=== PATIENT | female | born 1940 | race Caucasian/White ===

== ENCOUNTER 2024-06-19 13:50 | Inpatient (IN) | payer BC, OTHER ==
[~2024-06-19] VITALS: Ht 154.9 cm; Wt 52.2 kg
[2024-06-19] MEDS: CEFEPIME 1 GM in IV D5W 50 ML IV ONE (14:00)
[2024-06-19] MEDS: IV NS 0.9% 1,000 ML BAG IV ONE ×2 (14:00→17:42)
[2024-06-19 14:13] LABS: BASOPHILS % (AUTO) 0.1 % (0.0-2.0); HEMATOCRIT 32 % (33-45); HEMOGLOBIN 10.5 g/dL (11.5-14.8); LYMPHOCYTES % (AUTO) 5.4 % (20.0-44.0); MEAN CORPUSCULAR HEMOGLOBIN 29 PG (26.0-33.0); MEAN CORPUSCULAR HGB CONC 33 g/dl (31.0-36.0); MEAN CORPUSCULAR VOLUME 88 fL (82-100); MONOCYTES # (AUTO) 0.7 K/uL (0.1-1.30); MONOCYTES % (AUTO) 3.7 % (2.0-12.0); NEUTROPHILS # (AUTO) 16.7 K/uL (1.8-8.9); NEUTROPHILS % (AUTO) 90.8 % (43.0-81.0); PLATELET COUNT (AUTO) 180 K/uL (150-450); RED BLOOD CELL COUNT(AUTO) 3.65 MIL/uL (4.0-5.2); RED CELL DISTRIBUTION WIDTH 15.8 % (11.5-15.0); WHITE BLOOD COUNT (AUTO) 18.4 K/uL (4.3-11.0)
[2024-06-19 14:27] LABS: LACTIC ACID 1.5 mmol/L (0.4-2.0)
[2024-06-19 14:34] LABS: ALANINE AMINOTRANSFERASE 40 U/L (12-78); ALKALINE PHOSPHATASE 108 U/L (46-116); ASPARTATE AMINOTRANSFERASE 42 U/L (15-37); BILIRUBIN,DIRECT 0.2 mg/dL (0.0-0.2); BILIRUBIN,TOTAL 0.7 mg/dL (0.2-1.0); CALCIUM, SERUM 10.8 mg/dL (8.5-10.1); CARBON DIOXIDE 27 mmol/L (21-32); CHLORIDE 101 mmol/L (98-107); CREATININE 1.4 mg/dL (0.6-1.3); GLUCOSE 135 mg/dL (74-106); POTASSIUM 3.6 mmol/L (3.5-5.1); SODIUM SERUM 137 mmol/L (136-145); TOTAL PROTEIN, SERUM 6.3 g/dL (6.4-8.2); UREA NITROGEN, BLOOD 53 mg/dL (7-18)
[2024-06-19 14:55] LABS: ABG BASE EXCESS 1.7 mmol/L (-2.0-3.0); ABG OXYGEN SATURATION 93.9 % (94.0-98.0); ABG PCO2 60.3 mmHg (32.0-45.0); ABG PH 7.301 (7.350-7.450); ABG PO2 76.5 mmHg (83.0-108.0); ABG TOTAL HEMOGLOBIN 10.7 G/dL (12.0-16.0); COHb 0.3 % (0.5-1.5); MetHb 0.4 % (0.0-1.5); O2Hb 93.2 % (94.0-97.0); SITE, ABG LEFT RADIAL
[2024-06-19 15:12] LABS: APPEARANCE,URINE CLEAR (CLEAR); BILIRUBIN,URINE NEGATIVE (NEGATIVE); BLOOD, URINE NEGATIVE Ery/uL (NEGATIVE); COLOR,URINE DARK YELLOW (YELLOW); KETONES,URINE NEGATIVE (NEGATIVE); LEUKOCYTE ESTERASE ,URINE NEGATIVE (NEGATIVE); NITRITE, URINE NEGATIVE (NEGATIVE); PH,URINE 5.5 (5.0-8.0); PROTEIN,URINE 1+ mg/dl (NEGATIVE); UGLUCOSE NEGATIVE (NEGATIVE); UROBILINOGEN,URINE 0.2 EU/dL (0.2)
[2024-06-19 15:15] LABS: ADD URINE CULTURE NO; BACTERIA,URINE Few /HPF (None Seen); HYALINE CASTS, URINE Few /LPF (None Seen); RBC,URINE 0-2 /HPF (0-2)
[2024-06-19 15:17] LABS: ALCOHOL, BLOOD < 3 mg/dL (0-10); SERUM AMMONIA 19 umol/L (11-32)
[2024-06-19 15:21] LABS: PARTIAL THROMBOPLASTIN TIME 29.8 SEC (24.3-34.3); PROTHROMBIN TIME 10.6 SECS (9.2-11.1)
[2024-06-19 15:21] LABS: AMPHETAMINE, URINE NEGATIVE (NEGATIVE); BARBITURATE, URINE NEGATIVE (NEGATIVE); CANNABINOID, URINE NEGATIVE (NEGATIVE); COCCAINE, URINE NEGATIVE (NEGATIVE); OPIATE, URINE NEGATIVE (NEGATIVE); PHENCYCLIDINE SCREEN,URINE NEGATIVE (NEGATIVE)
[2024-06-19 15:22] LABS: BENZODIAZEPINE, URINE POSITIVE (NEGATIVE)
[2024-06-19 17:01] LABS: ABG BASE EXCESS 1.4 mmol/L (-2.0-3.0); ABG OXYGEN SATURATION 98.2 % (94.0-98.0); ABG PH 7.345 (7.350-7.450); ABG PO2 132.8 mmHg (83.0-108.0); ABG TOTAL HEMOGLOBIN 11.2 G/dL (12.0-16.0); COHb 0.2 % (0.5-1.5); MetHb 0.5 % (0.0-1.5); O2Hb 97.5 % (94.0-97.0); SITE, ABG RIGHT RADIAL
[2024-06-19] MEDS ORDERED: CLON0.5T4 PO (17:25)
[2024-06-19] MEDS ORDERED: FERR325T24 PO (17:25)
[2024-06-19] MEDS ORDERED: VITA1TAB56 PO (17:25)
[2024-06-19] MEDS ORDERED: ALPR0.5T8 PO (17:25)
[2024-06-19] MEDS ORDERED: CALC-1026 PO (17:25)
[2024-06-19] MEDS ORDERED: ATOR10TA PO (17:25)
[2024-06-19] MEDS ORDERED: ASCO500T22 PO (17:25)
[2024-06-19] MEDS ORDERED: ALPR1TAB7 PO (17:25)
[2024-06-19] MEDS ORDERED: AMLO-212 PO (17:25)
[2024-06-19] MEDS ORDERED: QUET25TA PO (17:25)
[2024-06-19] MEDS ORDERED: POLY17PO4 PO (17:25)
[2024-06-19] MEDS ORDERED: ALBUTEROL FS 2.5 MG/3 ML VIAL.NEB NEB PRN (18:30)
[2024-06-19] MEDS ORDERED: IPRATROPIUM NEB FS 0.5 MG/2.5 ML AMPUL.NEB NEB PRN (18:30)
[2024-06-19] MEDS ORDERED: ONDANSETRON HCL/PF 4 MG/2 ML VIAL IVP PRN (18:30)
[2024-06-19 20:00] VITALS: BP_SYST 110; BP_SYST 169; BP_DIAS 131; BP_DIAS 50; O2SAT 92; O2SAT 99
[2024-06-19] MEDS: IV NS 0.9% 1,000 ML IV PRN (20:08)
[2024-06-19] MEDS: ENOXAPARIN SODIUM 30 MG/0.3 ML DISP.SYRIN SQ SCH (20:20)
[2024-06-19] MEDS: dexaMETHasone SOD PHOSPHATE 10 MG/ML VIAL IV ONE (20:20)
[2024-06-19] MEDS: DOXYCYCLINE 100 MG in IV D5W 100 ML IV SCH (20:24)
[2024-06-19 21:00] VITALS: BP 106/54; O2SAT 99
[2024-06-19] MEDS: ATORVASTATIN 10 MG TABLET PO SCH (21:25)
[2024-06-19] MEDS: QUETIAPINE FUMARATE 25 MG TABLET PO SCH (21:25)
[2024-06-19 22:00] VITALS: BP 104/55; O2SAT 99
[2024-06-19 23:00] VITALS: BP 108/57; O2SAT 100
[2024-06-19] MEDS: NOREPINEPHRINE 8MG/250ML RTU 250 ML IV ONE (23:57)
[2024-06-20] VITALS (63 sets, daily range): BP systolic 75–134; BP diastolic 39–97; TEMP 97.6–98.3; O2SAT 91–100
[2024-06-20 03:36] LABS: BASOPHILS % (AUTO) 0.1 % (0.0-2.0); HEMATOCRIT 34 % (33-45); HEMOGLOBIN 10.8 g/dL (11.5-14.8); LYMPHOCYTES # (AUTO) 0.2 K/uL (0.8-4.8); LYMPHOCYTES % (AUTO) 1.5 % (20.0-44.0); MEAN CORPUSCULAR HEMOGLOBIN 29 PG (26.0-33.0); MEAN CORPUSCULAR HGB CONC 31 g/dl (31.0-36.0); MEAN CORPUSCULAR VOLUME 91 fL (82-100); MONOCYTES # (AUTO) 0.3 K/uL (0.1-1.30); MONOCYTES % (AUTO) 1.7 % (2.0-12.0); NEUTROPHILS % (AUTO) 96.7 % (43.0-81.0); PLATELET COUNT (AUTO) 167 K/uL (150-450); RED BLOOD CELL COUNT(AUTO) 3.75 MIL/uL (4.0-5.2); RED CELL DISTRIBUTION WIDTH 16.5 % (11.5-15.0); WHITE BLOOD COUNT (AUTO) 15.5 K/uL (4.3-11.0)
[2024-06-20 03:53] LABS: CALCIUM, SERUM 9.3 mg/dL (8.5-10.1); CREATININE 0.9 mg/dL (0.6-1.3); MAGNESIUM 2.1 mg/dL (1.8-2.4); POTASSIUM 3.3 mmol/L (3.5-5.1)
[2024-06-20] MEDS: AMLODIPINE BESYLATE 5 MG TABLET PO SCH (09:00)
[2024-06-20 09:35] LABS: ABG BASE EXCESS -1.4 mmol/L (-2.0-3.0); ABG OXYGEN SATURATION 96.3 % (94.0-98.0); ABG PCO2 44.2 mmHg (32.0-45.0); ABG PH 7.356 (7.350-7.450); ABG PO2 83.7 mmHg (83.0-108.0); COHb 0.3 % (0.5-1.5); MetHb 0.1 % (0.0-1.5); O2Hb 95.9 % (94.0-97.0); SITE, ABG LEFT RADIAL
[2024-06-20] MEDS: PANTOPRAZOLE 40 MG TABLET.DR PO SCH (09:38)
[2024-06-20] MEDS: FERROUS SULFATE (325 MG) 325 MG/TAB TABLET PO SCH (09:38)
[2024-06-20] MEDS: POTASSIUM CHLORIDE 20 MEQ TAB.PRT.SR PO SCH (09:39)
[2024-06-20] MEDS: NOREPINEPHRINE 8 MG in IV D5W 242 ML IV PRN (11:18)
[2024-06-20] MEDS: CEFEPIME 2 GM in IV D5W 100 ML IV SCH (14:06)
[2024-06-21] VITALS (39 sets, daily range): BP systolic 77–146; BP diastolic 46–123; TEMP 97.6–98.6; O2SAT 90–100
[2024-06-21 04:23] LABS: BASOPHILS % (AUTO) 0.1 % (0.0-2.0); HEMATOCRIT 35 % (33-45); HEMOGLOBIN 11.5 g/dL (11.5-14.8); LYMPHOCYTES # (AUTO) 0.7 K/uL (0.8-4.8); LYMPHOCYTES % (AUTO) 4.1 % (20.0-44.0); MEAN CORPUSCULAR HEMOGLOBIN 29 PG (26.0-33.0); MEAN CORPUSCULAR HGB CONC 33 g/dl (31.0-36.0); MEAN CORPUSCULAR VOLUME 87 fL (82-100); MONOCYTES % (AUTO) 5.6 % (2.0-12.0); NEUTROPHILS # (AUTO) 16.3 K/uL (1.8-8.9); NEUTROPHILS % (AUTO) 90.2 % (43.0-81.0); PLATELET COUNT (AUTO) 271 K/uL (150-450); RED CELL DISTRIBUTION WIDTH 15.6 % (11.5-15.0)
[2024-06-21 04:31] LABS: CALCIUM, SERUM 8.7 mg/dL (8.5-10.1); CREATININE 0.7 mg/dL (0.6-1.3); PHOSPHORUS 2.2 mg/dL (2.5-4.9); POTASSIUM 3.3 mmol/L (3.5-5.1)
[2024-06-21] MEDS: PANTOPRAZOLE 40 MG VIAL IV SCH (08:13)
[2024-06-21] MEDS: POTASSIUM CL. PREMIX PERIPHER. 50 ML IV SCH (08:14)
[2024-06-21] MEDS: Z GUARD REMEDY 4 OZ OINT TP PRN (12:26)
[2024-06-21] MEDS: OLANZAPINE 10 MG VIAL IM ONE (14:17)
[2024-06-21] MEDS: Sodium Phosphate 15 MMOL in IV NS 0.9% 245 ML IV ONE (17:12)
[2024-06-22] VITALS (15 sets, daily range): BP systolic 116–158; BP diastolic 68–119; TEMP 98.2–99; O2SAT 87–99
[2024-06-22] MEDS: OLANZAPINE 10 MG VIAL IM ONE ×2 (01:20→01:23)
[2024-06-22 07:27] LABS: CREATININE 0.7 mg/dL (0.6-1.3); MAGNESIUM 1.5 mg/dL (1.8-2.4); PHOSPHORUS 1.5 mg/dL (2.5-4.9)
[2024-06-22 07:31] LABS: BASOPHILS % (AUTO) 0.1 % (0.0-2.0); HEMATOCRIT 37 % (33-45); HEMOGLOBIN 12.2 g/dL (11.5-14.8); LYMPHOCYTES % (AUTO) 7.6 % (20.0-44.0); MEAN CORPUSCULAR HEMOGLOBIN 29 PG (26.0-33.0); MEAN CORPUSCULAR HGB CONC 33 g/dl (31.0-36.0); MEAN CORPUSCULAR VOLUME 86 fL (82-100); MONOCYTES # (AUTO) 1.1 K/uL (0.1-1.30); MONOCYTES % (AUTO) 8.3 % (2.0-12.0); NEUTROPHILS # (AUTO) 11.3 K/uL (1.8-8.9); PLATELET COUNT (AUTO) 293 K/uL (150-450); RED BLOOD CELL COUNT(AUTO) 4.28 MIL/uL (4.0-5.2); RED CELL DISTRIBUTION WIDTH 15.2 % (11.5-15.0); WHITE BLOOD COUNT (AUTO) 13.5 K/uL (4.3-11.0)
[2024-06-22 08:38] LABS: POTASSIUM 2.6 mmol/L (3.5-5.1)
[2024-06-22] MEDS ORDERED: POTASSIUM PHOSPHATE MM 15 MMOL in IV NS 0.9% 250 ML IV SCH (09:30)
[2024-06-22] MEDS: Magnesium 1GM/D5W 100ML PREMIX 100 ML IV SCH (09:52)
[2024-06-22] MEDS: POTASSIUM CL. PREMIX PERIPHER. 50 ML IV SCH ×2 (09:53→22:06)
[2024-06-22] MEDS ORDERED: BARIUM SULFATE 98% 135 ML SUSP.RECON PO ONE (13:23)
[2024-06-22 16:13] LABS: CALCIUM, SERUM 7.9 mg/dL (8.5-10.1); CREATININE 0.4 mg/dL (0.6-1.3); POTASSIUM 3.1 mmol/L (3.5-5.1)
[2024-06-22 16:22] LABS: ABG OXYGEN SATURATION 82.8 % (94.0-98.0); ABG PCO2 39.4 mmHg (32.0-45.0); ABG PH 7.495 (7.350-7.450); ABG PO2 43.2 mmHg (83.0-108.0); ABG TOTAL HEMOGLOBIN 12.8 G/dL (12.0-16.0); COHb 0.2 % (0.5-1.5); MetHb 0.1 % (0.0-1.5); O2Hb 82.6 % (94.0-97.0); SITE, ABG RIGHT RADIAL
[2024-06-22] MEDS: Sodium Phosphate 15 MMOL in IV NS 0.9% 245 ML IV SCH (17:15)
[2024-06-22 21:35] LABS: CALCIUM, SERUM 7.6 mg/dL (8.5-10.1); CREATININE 0.6 mg/dL (0.6-1.3); MAGNESIUM 1.9 mg/dL (1.8-2.4)
[2024-06-22 21:48] LABS: POTASSIUM 2.7 mmol/L (3.5-5.1)
[2024-06-23] VITALS (29 sets, daily range): BP systolic 108–147; BP diastolic 49–132; TEMP 98–98.8; O2SAT 96–100
[2024-06-23 04:36] LABS: HEMATOCRIT 37 % (33-45); HEMOGLOBIN 11.8 g/dL (11.5-14.8); LYMPHOCYTES # (AUTO) 0.8 K/uL (0.8-4.8); LYMPHOCYTES % (AUTO) 4.7 % (20.0-44.0); MEAN CORPUSCULAR HEMOGLOBIN 28 PG (26.0-33.0); MEAN CORPUSCULAR HGB CONC 32 g/dl (31.0-36.0); MEAN CORPUSCULAR VOLUME 89 fL (82-100); MONOCYTES # (AUTO) 0.9 K/uL (0.1-1.30); MONOCYTES % (AUTO) 5.3 % (2.0-12.0); NEUTROPHILS # (AUTO) 14.9 K/uL (1.8-8.9); PLATELET COUNT (AUTO) 283 K/uL (150-450); RED BLOOD CELL COUNT(AUTO) 4.19 MIL/uL (4.0-5.2); RED CELL DISTRIBUTION WIDTH 15.8 % (11.5-15.0); WHITE BLOOD COUNT (AUTO) 16.6 K/uL (4.3-11.0)
[2024-06-23 04:47] LABS: BILIRUBIN,TOTAL 0.9 mg/dL (0.2-1.0); CALCIUM, SERUM 7.4 mg/dL (8.5-10.1); CREATININE 0.4 mg/dL (0.6-1.3); MAGNESIUM 2.1 mg/dL (1.8-2.4); PHOSPHORUS 1.4 mg/dL (2.5-4.9); POTASSIUM 3.3 mmol/L (3.5-5.1); TOTAL PROTEIN, SERUM 6.2 g/dL (6.4-8.2)
[2024-06-23] MEDS: POTASSIUM CL. PREMIX PERIPHER. 50 ML IV SCH (10:45)
[2024-06-23] MEDS ORDERED: ACETYLCYSTEINE 20% ORAL SOLN 6,000 MG/30 ML VIAL PO SCH (11:30)
[2024-06-23] MEDS: ALBUTEROL FS 2.5 MG/3 ML VIAL.NEB NEB SCH (11:48)
[2024-06-23] MEDS: IPRATROPIUM NEB FS 0.5 MG/2.5 ML AMPUL.NEB NEB SCH (11:48)
[2024-06-23] MEDS ORDERED: ACETYLCYSTEINE 10% SOLN 400 MG/4 ML VIAL IH PRN (12:00)
[2024-06-23] MEDS: Sodium Phosphate 15 MMOL in IV NS 0.9% 245 ML IV ONE (16:04)
[2024-06-23] MEDS: ACETYLCYSTEINE 10% SOLN 400 MG/4 ML VIAL PO SCH (21:00)
[2024-06-24] VITALS (42 sets, daily range): BP systolic 111–156; BP diastolic 53–79; TEMP 98.9–99.8; O2SAT 51–100
[2024-06-24] MEDS: ACETYLCYSTEINE 10% SOLN 400 MG/4 ML VIAL NEB SCH ×2 (01:50→17:41)
[2024-06-24 06:19] LABS: BASOPHILS % (AUTO) 0.2 % (0.0-2.0); EOSINOPHILS % (AUTO) 0.1 % (0.0-6.0); HEMATOCRIT 34 % (33-45); HEMOGLOBIN 11.6 g/dL (11.5-14.8); LYMPHOCYTES # (AUTO) 1.4 K/uL (0.8-4.8); LYMPHOCYTES % (AUTO) 9.2 % (20.0-44.0); MEAN CORPUSCULAR HEMOGLOBIN 29 PG (26.0-33.0); MEAN CORPUSCULAR HGB CONC 34 g/dl (31.0-36.0); MEAN CORPUSCULAR VOLUME 86 fL (82-100); MONOCYTES # (AUTO) 0.9 K/uL (0.1-1.30); MONOCYTES % (AUTO) 6.3 % (2.0-12.0); NEUTROPHILS # (AUTO) 12.7 K/uL (1.8-8.9); NEUTROPHILS % (AUTO) 84.2 % (43.0-81.0); PLATELET COUNT (AUTO) 332 K/uL (150-450); RED BLOOD CELL COUNT(AUTO) 3.95 MIL/uL (4.0-5.2); RED CELL DISTRIBUTION WIDTH 15.4 % (11.5-15.0); WHITE BLOOD COUNT (AUTO) 15.1 K/uL (4.3-11.0)
[2024-06-24 06:30] LABS: CALCIUM, SERUM 7.3 mg/dL (8.5-10.1); CREATININE 0.4 mg/dL (0.6-1.3)
[2024-06-24 06:39] LABS: POTASSIUM 2.7 mmol/L (3.5-5.1)
[2024-06-24 06:59] LABS: LYMPHOCYTES % (MANUAL) 6 % (16-48); MONOCYTES % (MANUAL) 6 % (0-11.0); NEUTROPHILS % (MANUAL) 88 (42-76); PLATELET ESTIMATE ADEQUATE
[2024-06-24 07:00] LABS: ANISOCYTOSIS 1+; OVALOCYTES 1+
[2024-06-24] MEDS: POTASSIUM CL. PREMIX PERIPHER. 50 ML IV SCH (08:18)
[2024-06-24] MEDS: Magnesium 1GM/D5W 100ML PREMIX 100 ML IV SCH (10:05)
[2024-06-25] VITALS (33 sets, daily range): BP systolic 112–165; BP diastolic 63–129; TEMP 98.3–99.5; O2SAT 82–100
[2024-06-25 05:26] LABS: BASOPHILS % (AUTO) 0.1 % (0.0-2.0); EOSINOPHILS % (AUTO) 0.1 % (0.0-6.0); HEMATOCRIT 39 % (33-45); HEMOGLOBIN 12.7 g/dL (11.5-14.8); LYMPHOCYTES # (AUTO) 1.1 K/uL (0.8-4.8); LYMPHOCYTES % (AUTO) 5.8 % (20.0-44.0); MEAN CORPUSCULAR HEMOGLOBIN 29 PG (26.0-33.0); MEAN CORPUSCULAR HGB CONC 33 g/dl (31.0-36.0); MEAN CORPUSCULAR VOLUME 88 fL (82-100); MONOCYTES # (AUTO) 1.2 K/uL (0.1-1.30); MONOCYTES % (AUTO) 6.5 % (2.0-12.0); NEUTROPHILS # (AUTO) 16.3 K/uL (1.8-8.9); NEUTROPHILS % (AUTO) 87.5 % (43.0-81.0); PLATELET COUNT (AUTO) 421 K/uL (150-450); RED BLOOD CELL COUNT(AUTO) 4.43 MIL/uL (4.0-5.2); RED CELL DISTRIBUTION WIDTH 15.6 % (11.5-15.0); WHITE BLOOD COUNT (AUTO) 18.6 K/uL (4.3-11.0)
[2024-06-25 05:51] LABS: CALCIUM, SERUM 7.3 mg/dL (8.5-10.1); CREATININE 0.4 mg/dL (0.6-1.3); MAGNESIUM 2.1 mg/dL (1.8-2.4); POTASSIUM 3.2 mmol/L (3.5-5.1)
[2024-06-25] MEDS ORDERED: POTASSIUM PHOSPHATE MM 15 MMOL in IV NS 0.9% 250 ML IV SCH (07:00)
[2024-06-25] MEDS: Sodium Phosphate 30 MMOL in IV NS 0.9% 250 ML IV SCH (07:00)
[2024-06-25 07:34] LABS: INR 1.15 (0.91-1.10); PARTIAL THROMBOPLASTIN TIME 24.2 SEC (24.3-34.3); PROTHROMBIN TIME 12.1 SECS (9.2-11.1)
[2024-06-25 08:53] LABS: ABG BASE EXCESS 7.9 mmol/L (-2.0-3.0); ABG OXYGEN SATURATION 93.7 % (94.0-98.0); ABG PCO2 40.9 mmHg (32.0-45.0); ABG PH 7.507 (7.350-7.450); ABG PO2 61.9 mmHg (83.0-108.0); ABG TOTAL HEMOGLOBIN 12.4 G/dL (12.0-16.0); COHb 0.3 % (0.5-1.5); MetHb 0.1 % (0.0-1.5); O2Hb 93.3 % (94.0-97.0); SITE, ABG LEFT RADIAL
[2024-06-25] MEDS: Sodium Phosphate 15 MMOL in IV NS 0.9% 250 ML IV SCH (09:01)
[2024-06-25] MEDS: THERAHONEY GEL 1.5 OZ TUBE TP SCH (09:02)
[2024-06-25] MEDS: ACETYLCYSTEINE 10% SOLN 400 MG/4 ML VIAL NEB SCH (11:50)
[2024-06-25] MEDS: POTASSIUM CL. PREMIX PERIPHER. 50 ML IV SCH (13:41)
[2024-06-25] MEDS: OLANZAPINE 10 MG VIAL IM ONE (17:11)
[2024-06-26] VITALS (30 sets, daily range): BP systolic 119–155; BP diastolic 47–116; TEMP 98.3–98.8; O2SAT 96–100
[2024-06-26 04:22] LABS: BASOPHILS % (AUTO) 0.2 % (0.0-2.0); EOSINOPHILS % (AUTO) 0.1 % (0.0-6.0); HEMATOCRIT 35 % (33-45); HEMOGLOBIN 11.7 g/dL (11.5-14.8); MEAN CORPUSCULAR HEMOGLOBIN 29 PG (26.0-33.0); MEAN CORPUSCULAR HGB CONC 34 g/dl (31.0-36.0); MEAN CORPUSCULAR VOLUME 87 fL (82-100); MONOCYTES # (AUTO) 0.7 K/uL (0.1-1.30); MONOCYTES % (AUTO) 5.2 % (2.0-12.0); NEUTROPHILS # (AUTO) 12.1 K/uL (1.8-8.9); NEUTROPHILS % (AUTO) 87.5 % (43.0-81.0); PLATELET COUNT (AUTO) 436 K/uL (150-450); RED CELL DISTRIBUTION WIDTH 15.9 % (11.5-15.0); WHITE BLOOD COUNT (AUTO) 13.8 K/uL (4.3-11.0)
[2024-06-26 04:33] LABS: CALCIUM, SERUM 7.6 mg/dL (8.5-10.1); CREATININE 0.5 mg/dL (0.6-1.3); MAGNESIUM 1.9 mg/dL (1.8-2.4); PHOSPHORUS 1.3 mg/dL (2.5-4.9); POTASSIUM 3.2 mmol/L (3.5-5.1)
[2024-06-26] MEDS: POTASSIUM CL. PREMIX PERIPHER. 50 ML IV SCH (09:41)
[2024-06-26] MEDS: IV D5W 1,000 ML IV PRN (09:47)
[2024-06-26] MEDS: POTASSIUM PHOSPHATE MM 5 MMOL in IV NS 0.9% 100 ML IV SCH (10:37)
[2024-06-27] VITALS (43 sets, daily range): BP systolic 117–141; BP diastolic 48–83; TEMP 98.2–98.8; O2SAT 92–100
[2024-06-27 04:33] LABS: BASOPHILS % (AUTO) 0.1 % (0.0-2.0); EOSINOPHILS # (AUTO) 0.1 K/uL (0.0-0.7); EOSINOPHILS % (AUTO) 0.6 % (0.0-6.0); HEMATOCRIT 35 % (33-45); HEMOGLOBIN 11.3 g/dL (11.5-14.8); LYMPHOCYTES # (AUTO) 0.9 K/uL (0.8-4.8); LYMPHOCYTES % (AUTO) 9.1 % (20.0-44.0); MEAN CORPUSCULAR HEMOGLOBIN 28 PG (26.0-33.0); MEAN CORPUSCULAR HGB CONC 33 g/dl (31.0-36.0); MEAN CORPUSCULAR VOLUME 86 fL (82-100); MONOCYTES # (AUTO) 0.7 K/uL (0.1-1.30); MONOCYTES % (AUTO) 6.8 % (2.0-12.0); NEUTROPHILS # (AUTO) 8.1 K/uL (1.8-8.9); NEUTROPHILS % (AUTO) 83.4 % (43.0-81.0); PLATELET COUNT (AUTO) 403 K/uL (150-450); RED CELL DISTRIBUTION WIDTH 15.9 % (11.5-15.0); WHITE BLOOD COUNT (AUTO) 9.8 K/uL (4.3-11.0)
[2024-06-27 05:10] LABS: CALCIUM, SERUM 7.2 mg/dL (8.5-10.1); CREATININE 0.4 mg/dL (0.6-1.3); MAGNESIUM 1.7 mg/dL (1.8-2.4); PHOSPHORUS 1.3 mg/dL (2.5-4.9); POTASSIUM 2.9 mmol/L (3.5-5.1)
[2024-06-27] MEDS ORDERED: TPN/PPN PER PHARMACY IV PRN (08:00)
[2024-06-27] MEDS: Magnesium 1GM/D5W 100ML PREMIX 100 ML IV SCH (08:15)
[2024-06-27] MEDS: POTASSIUM CL. PREMIX PERIPHER. 50 ML IV SCH (08:15)
[2024-06-27] MEDS: POTASSIUM PHOSPHATE MM 15 MMOL in IV NS 0.9% 250 ML IV SCH (08:31)
[2024-06-27] MEDS ORDERED: INSULIN REGULAR, HUMAN 100 UNIT/ML 3 ML VIAL SQ PRN (10:30)
[2024-06-27] MEDS: BLOOD SUGAR DIAGNOSTIC 1 EACH STRIP IN SCH (11:38)
[2024-06-27] MEDS: PPN BAG #1 IV SCH (13:53)
[2024-06-27] MEDS: IV D5W 1,000 ML IV SCH (14:02)
[2024-06-27] MEDS: INSULIN REGULAR, HUMAN 100 UNIT/ML 3 ML VIAL SQ PRN (17:40)
[2024-06-27] MEDS: ACETYLCYSTEINE 10% SOLN 400 MG/4 ML VIAL NEB SCH (23:13)
[2024-06-28] VITALS (36 sets, daily range): BP systolic 100–161; BP diastolic 57–141; TEMP 97.9–100.3; O2SAT 88–100
[2024-06-28 03:50] LABS: BASOPHILS % (AUTO) 0.1 % (0.0-2.0); EOSINOPHILS % (AUTO) 0.3 % (0.0-6.0); HEMATOCRIT 34 % (33-45); HEMOGLOBIN 11.3 g/dL (11.5-14.8); LYMPHOCYTES # (AUTO) 0.9 K/uL (0.8-4.8); LYMPHOCYTES % (AUTO) 7.2 % (20.0-44.0); MEAN CORPUSCULAR HEMOGLOBIN 29 PG (26.0-33.0); MEAN CORPUSCULAR HGB CONC 33 g/dl (31.0-36.0); MEAN CORPUSCULAR VOLUME 87 fL (82-100); MONOCYTES # (AUTO) 0.7 K/uL (0.1-1.30); MONOCYTES % (AUTO) 5.6 % (2.0-12.0); NEUTROPHILS # (AUTO) 11.1 K/uL (1.8-8.9); NEUTROPHILS % (AUTO) 86.8 % (43.0-81.0); PLATELET COUNT (AUTO) 430 K/uL (150-450); RED BLOOD CELL COUNT(AUTO) 3.96 MIL/uL (4.0-5.2); RED CELL DISTRIBUTION WIDTH 15.5 % (11.5-15.0); WHITE BLOOD COUNT (AUTO) 12.8 K/uL (4.3-11.0)
[2024-06-28 04:02] LABS: CALCIUM, SERUM 7.7 mg/dL (8.5-10.1); CARBON DIOXIDE 32 mmol/L (21-32); CHLORIDE 102 mmol/L (98-107); CREATININE 0.5 mg/dL (0.6-1.3); GLUCOSE 96 mg/dL (74-106); INR 1.1 (0.91-1.10); POTASSIUM 3.2 mmol/L (3.5-5.1); PROTHROMBIN TIME 11.6 SECS (9.2-11.1); SODIUM SERUM 136 mmol/L (136-145); UREA NITROGEN, BLOOD 10 mg/dL (7-18)
[2024-06-28 04:09] LABS: PHOSPHORUS 0.9 mg/dL (2.5-4.9)
[2024-06-28] MEDS ORDERED: ANESTHESIA TRAY IN PYXIS 1 EA TRAY MC ONE (06:53)
[2024-06-28] MEDS: POTASSIUM CL. PREMIX PERIPHER. 50 ML IV SCH (09:08)
[2024-06-28] MEDS: POTASSIUM PHOSPHATE MM 7.5 MMOL in IV NS 0.9% 100 ML IV SCH (09:12)
[2024-06-28] MEDS: PPN BAG #2 IV SCH (12:51)
[2024-06-29] VITALS (35 sets, daily range): BP systolic 100–135; BP diastolic 40–86; TEMP 98–99.9; O2SAT 96–100
[2024-06-29 04:31] LABS: CALCIUM, SERUM 7.7 mg/dL (8.5-10.1); CREATININE 0.5 mg/dL (0.6-1.3); MAGNESIUM 1.9 mg/dL (1.8-2.4); PHOSPHORUS 1.6 mg/dL (2.5-4.9); POTASSIUM 3.2 mmol/L (3.5-5.1)
[2024-06-29] MEDS: PPN BAG #3 IV SCH (07:37)
[2024-06-29] MEDS: POTASSIUM PHOSPHATE MM 7.5 MMOL in IV NS 0.9% 100 ML IV SCH ×2 (07:45→14:02)
[2024-06-29] MEDS: FAT EMULSION 20% 500 ML in PREMIX 1 EA IV SCH (13:06)
[2024-06-29] MEDS: POTASSIUM CL. PREMIX PERIPHER. 50 ML IV SCH (20:47)
[2024-06-30] VITALS (21 sets, daily range): BP systolic 92–124; BP diastolic 41–78; TEMP 97.8–98.6; O2SAT 95–100
[2024-06-30 05:28] LABS: CALCIUM, SERUM 7.9 mg/dL (8.5-10.1); CARBON DIOXIDE 30 mmol/L (21-32); CHLORIDE 104 mmol/L (98-107); CREATININE 0.5 mg/dL (0.6-1.3); GLUCOSE 140 mg/dL (74-106); MAGNESIUM 1.7 mg/dL (1.8-2.4); PHOSPHORUS 1.9 mg/dL (2.5-4.9); POTASSIUM 3.7 mmol/L (3.5-5.1); SODIUM SERUM 137 mmol/L (136-145); UREA NITROGEN, BLOOD 14 mg/dL (7-18)
[2024-06-30] MEDS: POTASSIUM PHOSPHATE MM 7.5 MMOL in IV NS 0.9% 100 ML IV SCH (07:11)
[2024-06-30] MEDS: Magnesium 1GM/D5W 100ML PREMIX 100 ML IV SCH (08:28)
[2024-06-30] MEDS: PPN BAG #4 IV SCH (17:37)
[2024-07-01] VITALS (13 sets, daily range): BP systolic 113–143; BP diastolic 56–75; TEMP 97.2–98.5; O2SAT 95–100
[2024-07-01 06:25] LABS: CALCIUM, SERUM 8.1 mg/dL (8.5-10.1); CREATININE 0.5 mg/dL (0.6-1.3); MAGNESIUM 1.9 mg/dL (1.8-2.4); PHOSPHORUS 1.9 mg/dL (2.5-4.9); POTASSIUM 3.8 mmol/L (3.5-5.1)
[2024-07-01] MEDS: POTASSIUM PHOSPHATE MM 7.5 MMOL in IV NS 0.9% 100 ML IV SCH (08:54)
[2024-07-01] MEDS ORDERED: IV D5W 1,000 ML IV PRN (10:00)
[2024-07-01] MEDS: OLANZAPINE 10 MG VIAL IM PRN (12:25)
[2024-07-01] MEDS: Sodium Phosphate 15 MMOL in IV NS 0.9% 245 ML IV ONE (16:36)
[2024-07-01] MEDS: Magnesium 1GM/D5W 100ML PREMIX 100 ML IV SCH (20:26)
[2024-07-02] VITALS (20 sets, daily range): BP systolic 127–147; BP diastolic 52–75; TEMP 97–99; O2SAT 95–100
[2024-07-02] MEDS: PPN BAG #5 IV SCH (02:02)
[2024-07-02 06:17] LABS: BASOPHILS % (AUTO) 0.6 % (0.0-2.0); EOSINOPHILS % (AUTO) 0.6 % (0.0-6.0); HEMATOCRIT 28 % (33-45); HEMOGLOBIN 9.6 g/dL (11.5-14.8); LYMPHOCYTES # (AUTO) 0.7 K/uL (0.8-4.8); LYMPHOCYTES % (AUTO) 9.5 % (20.0-44.0); MEAN CORPUSCULAR HEMOGLOBIN 29 PG (26.0-33.0); MEAN CORPUSCULAR HGB CONC 34 g/dl (31.0-36.0); MEAN CORPUSCULAR VOLUME 86 fL (82-100); MONOCYTES # (AUTO) 0.8 K/uL (0.1-1.30); MONOCYTES % (AUTO) 10.8 % (2.0-12.0); NEUTROPHILS # (AUTO) 5.7 K/uL (1.8-8.9); NEUTROPHILS % (AUTO) 78.5 % (43.0-81.0); PLATELET COUNT (AUTO) 352 K/uL (150-450); RED BLOOD CELL COUNT(AUTO) 3.28 MIL/uL (4.0-5.2); WHITE BLOOD COUNT (AUTO) 7.2 K/uL (4.3-11.0)
[2024-07-02 08:09] LABS: CALCIUM, SERUM 8.1 mg/dL (8.5-10.1); CREATININE 0.4 mg/dL (0.6-1.3); POTASSIUM 3.2 mmol/L (3.5-5.1)
[2024-07-02 08:13] LABS: PHOSPHORUS 2.3 mg/dL (2.5-4.9)
[2024-07-02] MEDS: POTASSIUM CL. PREMIX PERIPHER. 50 ML IV SCH (09:04)
[2024-07-02] MEDS: Sodium Phosphate 15 MMOL in IV NS 0.9% 245 ML IV SCH (14:05)
[2024-07-02] MEDS: PPN #6 IV SCH (19:44)
[2024-07-03] VITALS (16 sets, daily range): BP systolic 108–134; BP diastolic 52–68; TEMP 97.5–98.2; O2SAT 95–100
[2024-07-03 07:16] LABS: BASOPHILS % (AUTO) 0.7 % (0.0-2.0); EOSINOPHILS % (AUTO) 0.4 % (0.0-6.0); HEMATOCRIT 30 % (33-45); HEMOGLOBIN 9.8 g/dL (11.5-14.8); LYMPHOCYTES # (AUTO) 0.6 K/uL (0.8-4.8); LYMPHOCYTES % (AUTO) 10.2 % (20.0-44.0); MEAN CORPUSCULAR HEMOGLOBIN 29 PG (26.0-33.0); MEAN CORPUSCULAR HGB CONC 33 g/dl (31.0-36.0); MEAN CORPUSCULAR VOLUME 88 fL (82-100); MONOCYTES # (AUTO) 0.7 K/uL (0.1-1.30); MONOCYTES % (AUTO) 12.1 % (2.0-12.0); NEUTROPHILS # (AUTO) 4.7 K/uL (1.8-8.9); NEUTROPHILS % (AUTO) 76.6 % (43.0-81.0); PLATELET COUNT (AUTO) 307 K/uL (150-450); RED BLOOD CELL COUNT(AUTO) 3.41 MIL/uL (4.0-5.2); RED CELL DISTRIBUTION WIDTH 14.9 % (11.5-15.0); WHITE BLOOD COUNT (AUTO) 6.1 K/uL (4.3-11.0)
[2024-07-03 07:32] LABS: CALCIUM, SERUM 8.3 mg/dL (8.5-10.1); CREATININE 0.5 mg/dL (0.6-1.3); MAGNESIUM 1.9 mg/dL (1.8-2.4); PHOSPHORUS 2.3 mg/dL (2.5-4.9); POTASSIUM 3.4 mmol/L (3.5-5.1)
[2024-07-03] MEDS: PPN #7 IV SCH (09:31)
[2024-07-03] MEDS: POTASSIUM PHOSPHATE MM 7.5 MMOL in IV NS 0.9% 100 ML IV SCH (11:38)
[2024-07-03] MEDS: Magnesium 1GM/D5W 100ML PREMIX 100 ML IV SCH (21:59)
[2024-07-04] VITALS (16 sets, daily range): BP systolic 99–134; BP diastolic 57–61; TEMP 97.8–98.4; O2SAT 94–100
[2024-07-04] MEDS: PPN BAG #8 IV SCH (00:03)
[2024-07-04 06:58] LABS: BASOPHILS % (AUTO) 0.5 % (0.0-2.0); EOSINOPHILS % (AUTO) 0.4 % (0.0-6.0); HEMATOCRIT 28 % (33-45); HEMOGLOBIN 9.7 g/dL (11.5-14.8); LYMPHOCYTES # (AUTO) 0.7 K/uL (0.8-4.8); LYMPHOCYTES % (AUTO) 8.8 % (20.0-44.0); MEAN CORPUSCULAR HEMOGLOBIN 29 PG (26.0-33.0); MEAN CORPUSCULAR HGB CONC 34 g/dl (31.0-36.0); MEAN CORPUSCULAR VOLUME 86 fL (82-100); MONOCYTES # (AUTO) 0.9 K/uL (0.1-1.30); MONOCYTES % (AUTO) 10.5 % (2.0-12.0); NEUTROPHILS # (AUTO) 6.5 K/uL (1.8-8.9); NEUTROPHILS % (AUTO) 79.8 % (43.0-81.0); PLATELET COUNT (AUTO) 336 K/uL (150-450); RED BLOOD CELL COUNT(AUTO) 3.31 MIL/uL (4.0-5.2); RED CELL DISTRIBUTION WIDTH 14.9 % (11.5-15.0); WHITE BLOOD COUNT (AUTO) 8.1 K/uL (4.3-11.0)
[2024-07-04 07:24] LABS: CALCIUM, SERUM 8.4 mg/dL (8.5-10.1); CREATININE 0.5 mg/dL (0.6-1.3); MAGNESIUM 2.1 mg/dL (1.8-2.4); PHOSPHORUS 2.6 mg/dL (2.5-4.9); POTASSIUM 3.5 mmol/L (3.5-5.1)
[2024-07-04] MEDS: POTASSIUM PHOSPHATE MM 7.5 MMOL in IV NS 0.9% 100 ML IV SCH (11:07)
[2024-07-04] MEDS: PPN BAG #9 IV SCH (16:54)
[2024-07-05] VITALS (18 sets, daily range): BP systolic 108–136; BP diastolic 40–78; TEMP 97.9–98.4; O2SAT 95–99
[2024-07-05 08:15] LABS: CALCIUM, SERUM 8.3 mg/dL (8.5-10.1); CREATININE 0.4 mg/dL (0.6-1.3); MAGNESIUM 1.9 mg/dL (1.8-2.4); PHOSPHORUS 2.4 mg/dL (2.5-4.9); POTASSIUM 3.3 mmol/L (3.5-5.1)
[2024-07-05] MEDS: POTASSIUM PHOSPHATE MM 7.5 MMOL in IV NS 0.9% 100 ML IV SCH (13:20)
[2024-07-05] MEDS: POTASSIUM CHLORIDE 10 MEQ/50 ML PREMIXED IVPB FOR PERIPHERAL LINE IV SCH (16:05)
[2024-07-05] MEDS: PPN BAG #10 IV SCH (18:25)
[2024-07-06] VITALS (18 sets, daily range): BP systolic 77–142; BP diastolic 32–85; TEMP 97.5–102.7; O2SAT 93–100
[2024-07-06 08:08] LABS: CALCIUM, SERUM 8.5 mg/dL (8.5-10.1); CREATININE 0.4 mg/dL (0.6-1.3); MAGNESIUM 1.8 mg/dL (1.8-2.4); PHOSPHORUS 3.1 mg/dL (2.5-4.9); POTASSIUM 3.7 mmol/L (3.5-5.1)
[2024-07-06] MEDS ORDERED: BUPIVACAINE 0.5 % PF 150 MG/30 ML VIAL ONE (12:26)
[2024-07-06] MEDS ORDERED: LIDOCAINE 1%-EPI 1:100,000 20 ML VIAL ONE (12:26)
[2024-07-06] MEDS ORDERED: BUPIVACAINE 0.25% 75 MG/30 ML VIAL ONE (12:26)
[2024-07-06] MEDS ORDERED: FENTANYL PF 100MCG/2ML AMPUL ONE (12:47)
[2024-07-06] MEDS ORDERED: ROCURONIUM BROMIDE 50 MG/5 ML ONE (12:48)
[2024-07-06] MEDS ORDERED: ALBUTEROL SULFATE 8 GM HFA.AER.AD ONE (14:57)
[2024-07-06] MEDS ORDERED: FENTANYL PF 100MCG/2ML AMPUL IV PRN ×2 (15:30→16:00)
[2024-07-06] MEDS ORDERED: ONDANSETRON HCL/PF 4 MG/2 ML VIAL IVP PRN (15:30)
[2024-07-06] MEDS: ACETAMINOPHEN 325 MG TABLET PO PRN (21:31)
[2024-07-06] MEDS: JEVITY 1.2 CAL 1,000 ML BOTTLE GT PRN (23:06)
[2024-07-06] MEDS: CEFTRIAXONE 1GM BAG (ER ONLY) 50 ML IV ONE (23:29)
[2024-07-06] MEDS: CEFTRIAXONE 1 G in IV D5W 50 ML IV SCH (23:36)
[2024-07-06] MEDS: IV NS 0.9% 500 ML IV ONE (23:36)
[2024-07-07] VITALS (18 sets, daily range): BP systolic 73–113; BP diastolic 32–52; TEMP 97.3–99.3; O2SAT 93–100
[2024-07-07] MEDS: PPN BAG #11 IV SCH (03:49)
[2024-07-07 07:11] LABS: BASOPHILS % (AUTO) 0.3 % (0.0-2.0); EOSINOPHILS % (AUTO) 0.3 % (0.0-6.0); HEMATOCRIT 26 % (33-45); HEMOGLOBIN 8.2 g/dL (11.5-14.8); LYMPHOCYTES # (AUTO) 0.8 K/uL (0.8-4.8); LYMPHOCYTES % (AUTO) 8.2 % (20.0-44.0); MEAN CORPUSCULAR HEMOGLOBIN 28 PG (26.0-33.0); MEAN CORPUSCULAR HGB CONC 32 g/dl (31.0-36.0); MEAN CORPUSCULAR VOLUME 87 fL (82-100); MONOCYTES # (AUTO) 0.6 K/uL (0.1-1.30); MONOCYTES % (AUTO) 6.1 % (2.0-12.0); NEUTROPHILS % (AUTO) 85.1 % (43.0-81.0); PLATELET COUNT (AUTO) 259 K/uL (150-450); RED BLOOD CELL COUNT(AUTO) 2.94 MIL/uL (4.0-5.2); RED CELL DISTRIBUTION WIDTH 14.8 % (11.5-15.0); WHITE BLOOD COUNT (AUTO) 9.4 K/uL (4.3-11.0)
[2024-07-07 07:28] LABS: CALCIUM, SERUM 8.1 mg/dL (8.5-10.1); CREATININE 0.7 mg/dL (0.6-1.3); MAGNESIUM 1.5 mg/dL (1.8-2.4); PHOSPHORUS 3.3 mg/dL (2.5-4.9); POTASSIUM 3.3 mmol/L (3.5-5.1)
[2024-07-07 08:09] LABS: APPEARANCE,URINE CLEAR (CLEAR); BILIRUBIN,URINE NEGATIVE (NEGATIVE); BLOOD, URINE TRACE-INTA Ery/uL (NEGATIVE); COLOR,URINE YELLOW (YELLOW); KETONES,URINE NEGATIVE (NEGATIVE); LEUKOCYTE ESTERASE ,URINE 1+ (NEGATIVE); NITRITE, URINE NEGATIVE (NEGATIVE); PROTEIN,URINE NEGATIVE (NEGATIVE); UGLUCOSE NEGATIVE (NEGATIVE); UROBILINOGEN,URINE 0.2 EU/dL (0.2)
[2024-07-07 08:35] LABS: ADD URINE CULTURE YES; BACTERIA,URINE None seen /HPF (None Seen); RBC,URINE 0-2 /HPF (0-2); SQUAMOUS EPITHELIAL CELL,UR 0-2 /HPF (None Seen); WBC,URINE 0-2 /HPF (0-3)
[2024-07-07] MEDS: POTASSIUM CL. PREMIX PERIPHER. 50 ML IV SCH (13:01)
[2024-07-07] MEDS: PPN #12 IV SCH ×2 (14:04→17:17)
[2024-07-07] MEDS: Magnesium 1GM/D5W 100ML PREMIX 100 ML IV SCH (14:43)
[2024-07-07] MEDS ORDERED: PPN #12 IV SCH (17:00)
[2024-07-07] MEDS: CEFTRIAXONE 1 G in IV D5W 50 ML IV SCH (23:13)
[2024-07-08] VITALS (18 sets, daily range): BP systolic 102–112; BP diastolic 45–58; TEMP 97.7–100; O2SAT 96–100
[2024-07-08 07:43] LABS: CALCIUM, SERUM 8.4 mg/dL (8.5-10.1); CREATININE 0.5 mg/dL (0.6-1.3); MAGNESIUM 1.8 mg/dL (1.8-2.4); POTASSIUM 4.5 mmol/L (3.5-5.1)
[2024-07-08] MEDS ORDERED: PPN #13 IV SCH (10:19)
[2024-07-08] MEDS ORDERED: SIMETHICONE 80 MG TAB.CHEW GT PRN (11:30)
[2024-07-08] MEDS ORDERED: ONDANSETRON HCL/PF 4 MG/2 ML VIAL IV PRN (11:30)
[2024-07-09] VITALS (15 sets, daily range): BP systolic 108–143; BP diastolic 48–77; TEMP 96.9–99.3; O2SAT 94–100
[2024-07-09] MEDS: DEXTROSE 50%-WATER 50 ML DISP.SYRIN IV PRN (06:58)
[2024-07-09 07:37] LABS: BASOPHILS % (AUTO) 0.4 % (0.0-2.0); EOSINOPHILS # (AUTO) 0.1 K/uL (0.0-0.7); EOSINOPHILS % (AUTO) 1.1 % (0.0-6.0); HEMATOCRIT 33 % (33-45); HEMOGLOBIN 9.5 g/dL (11.5-14.8); LYMPHOCYTES # (AUTO) 0.9 K/uL (0.8-4.8); LYMPHOCYTES % (AUTO) 16.4 % (20.0-44.0); MEAN CORPUSCULAR HEMOGLOBIN 29 PG (26.0-33.0); MEAN CORPUSCULAR HGB CONC 29 g/dl (31.0-36.0); MEAN CORPUSCULAR VOLUME 98 fL (82-100); MONOCYTES # (AUTO) 0.6 K/uL (0.1-1.30); MONOCYTES % (AUTO) 11.7 % (2.0-12.0); NEUTROPHILS # (AUTO) 3.8 K/uL (1.8-8.9); NEUTROPHILS % (AUTO) 70.4 % (43.0-81.0); PLATELET COUNT (AUTO) 245 K/uL (150-450); RED BLOOD CELL COUNT(AUTO) 3.35 MIL/uL (4.0-5.2); RED CELL DISTRIBUTION WIDTH 16.4 % (11.5-15.0); WHITE BLOOD COUNT (AUTO) 5.4 K/uL (4.3-11.0)
[2024-07-09 07:40] LABS: CALCIUM, SERUM 8.5 mg/dL (8.5-10.1); CREATININE 0.4 mg/dL (0.6-1.3); MAGNESIUM 2.2 mg/dL (1.8-2.4); PHOSPHORUS 3.4 mg/dL (2.5-4.9); POTASSIUM 4.4 mmol/L (3.5-5.1)
[2024-07-10] VITALS (17 sets, daily range): BP systolic 104–119; BP diastolic 51–68; TEMP 97.5–98.6; O2SAT 94–100
[2024-07-10] MEDS: AMLODIPINE BESYLATE 5 MG TABLET GT SCH (08:44)
[2024-07-10] MEDS: FERROUS SULFATE UDC 300 MG/5 ML UDC GT SCH (09:29)
[2024-07-11] VITALS (15 sets, daily range): BP systolic 90–113; BP diastolic 45–59; TEMP 97.5–98.6; O2SAT 91–99
[2024-07-12] VITALS (17 sets, daily range): BP systolic 98–160; BP diastolic 47–74; TEMP 97.3–98.4; O2SAT 94–99
[2024-07-12 07:31] LABS: BASOPHILS % (AUTO) 0.3 % (0.0-2.0); EOSINOPHILS # (AUTO) 0.1 K/uL (0.0-0.7); EOSINOPHILS % (AUTO) 1.6 % (0.0-6.0); HEMATOCRIT 27 % (33-45); LYMPHOCYTES % (AUTO) 19.6 % (20.0-44.0); MEAN CORPUSCULAR HEMOGLOBIN 29 PG (26.0-33.0); MEAN CORPUSCULAR HGB CONC 34 g/dl (31.0-36.0); MEAN CORPUSCULAR VOLUME 86 fL (82-100); MONOCYTES # (AUTO) 0.5 K/uL (0.1-1.30); MONOCYTES % (AUTO) 9.6 % (2.0-12.0); NEUTROPHILS # (AUTO) 3.5 K/uL (1.8-8.9); NEUTROPHILS % (AUTO) 68.9 % (43.0-81.0); PLATELET COUNT (AUTO) 299 K/uL (150-450); RED BLOOD CELL COUNT(AUTO) 3.11 MIL/uL (4.0-5.2); RED CELL DISTRIBUTION WIDTH 14.6 % (11.5-15.0); WHITE BLOOD COUNT (AUTO) 5.1 K/uL (4.3-11.0)
[2024-07-12 08:18] LABS: CALCIUM, SERUM 9.2 mg/dL (8.5-10.1); CREATININE 0.5 mg/dL (0.6-1.3); MAGNESIUM 2.4 mg/dL (1.8-2.4)
[2024-07-13] VITALS (12 sets, daily range): BP systolic 102–127; BP diastolic 50–71; TEMP 97.3–98.6; O2SAT 95–100
== END 2024-07-13 15:20 | disposition home health service (06) | DRG 177 ==
LOC: ER 13:55 → ICU 19:25 → TELE1 06-21 13:29 → ICU 06-22 16:36 → TELE1 06-28 06:30 → ICU 06-28 06:43 → TELE-TD 06-30 10:25 → TELE1 07-01 13:17
PROVIDERS: ADMIT Nurse Practitioner Acute Care; ATTEND Nurse Practitioner Acute Care
PROC: 5A09357 Assistance with Respiratory Ventilation, Less than 24 Consecutive Hours, Continuous Positive Airway Pressure (ICD-10-PCS; principal; 2024-06-19)
PROC: 5A09357 Assistance with Respiratory Ventilation, Less than 24 Consecutive Hours, Continuous Positive Airway Pressure (ICD-10-PCS; 2024-06-22)
PROC: 0DJ08ZZ Inspection of Upper Intestinal Tract, Via Natural or Artificial Opening Endoscopic (ICD-10-PCS; 2024-06-28)
PROC: 0DCP7ZZ Extirpation of Matter from Rectum, Via Natural or Artificial Opening (ICD-10-PCS; 2024-07-05)
PROC: 0DH63UZ Insertion of Feeding Device into Stomach, Percutaneous Approach (ICD-10-PCS; 2024-07-06)
DX: J69.0 Pneumonitis due to inhalation of food and vomit (principal); G93.41 Metabolic encephalopathy; J96.01 Acute respiratory failure with hypoxia; J96.02 Acute respiratory failure with hypercapnia; N17.9 Acute kidney failure, unspecified; E87.0 Hyperosmolality and hypernatremia; R64 Cachexia; J98.19 Other pulmonary collapse; K59.39 Other megacolon; J15.9 Unspecified bacterial pneumonia; T17.990A Other foreign object in respiratory tract, part unspecified in causing asphyxiation, initial encounter; D63.8 Anemia in other chronic diseases classified elsewhere; E86.0 Dehydration; R13.10 Dysphagia, unspecified; E11.9 Type 2 diabetes mellitus without complications; E66.01 Morbid (severe) obesity due to excess calories; E78.5 Hyperlipidemia, unspecified; E83.39 Other disorders of phosphorus metabolism; E83.42 Hypomagnesemia; E83.52 Hypercalcemia; E87.6 Hypokalemia; F32.A Depression, unspecified; F41.9 Anxiety disorder, unspecified; I10 Essential (primary) hypertension; M89.8X9 Other specified disorders of bone, unspecified site; Z98.82 Breast implant status; D72.829 Elevated white blood cell count, unspecified; L89.326 Pressure-induced deep tissue damage of left buttock; L89.316 Pressure-induced deep tissue damage of right buttock; L89.156 Pressure-induced deep tissue damage of sacral region; L98.8 Other specified disorders of the skin and subcutaneous tissue; K44.9 Diaphragmatic hernia without obstruction or gangrene; F29 Unspecified psychosis not due to a substance or known physiological condition; W44.F9XA Other object of natural or organic material, entering into or through a natural orifice, initial encounter; Y92.009 Unspecified place in unspecified non-institutional (private) residence as the place of occurrence of the external cause; E83.9 Disorder of mineral metabolism, unspecified; K56.41 Fecal impaction; K66.0 Peritoneal adhesions (postprocedural) (postinfection); R62.7 Adult failure to thrive; Z68.21 Body mass index [BMI] 21.0-21.9, adult
CPT/HCPCS: 31720; 36415; 36600; 70450-TC; 71045-TC; 71250-TC; 74018; 74230-TC; 80048-TC; 80053-TC; 80076-TC; 81001; 82140-TC; 82803-TC; 82962-TC; 83605-TC; 83735-TC; 84100-TC; 84132-TC; 84134-TC; 84443-TC; 84478-TC; 84484-TC; 85025-TC; 85610-TC; 85730-TC; 86850-TC; 87040-TC; 87081-TC; 87086-TC; 92526; 92611-TC; 94760-TC; 94762-TC; 94799-TC; 99082-TC; A4216; A4217; A4223; A6213; A9563; G0378; G0480; J0690; J0692; J0696; J1100; J1650; J1815; J2405; J2470; J2704; J3010; J3475; J3480; J3490; J7030; J7040; J7042; J7050; J7060; J7070